=== PATIENT | male | born 1970 | race Caucasian/White ===

== ENCOUNTER 2016-11-19 12:17 | Emergency (ER) | payer OTHER ==
[2016-11-19] VITALS (11 sets, daily range): BP systolic 110–146; BP diastolic 65–78
[~2016-11-19] VITALS: Ht 185.4 cm; Wt 122.9 kg
--- NOTE | 2016-11-19 12:41 | RAD ---
Exam: AP portable chest. History: Chest pain. Comparison: None. Findings: The heart and mediastinal structures are within normal limits for size. Lungs are without infiltrate. No pneumothorax or pleural effusion is appreciated. Impression: 1. No acute cardiopulmonary process.
--- NOTE | 2016-11-19 12:57 | PHYS DOC ---
Adult General Chief Complaint Chief Complaint: ABNORMAL LABS HPI HPI Patient presents to the emergency department from [facility] for evaluation of multiple symptoms including chest pain and dyspnea on exertion headaches and dizziness. All of the symptoms have been going on for 1-2 weeks except for the chest pain started last night. He said it was nonexertional chest pressure with radiation to his back however he denied any nausea vomiting or diaphoresis with it. He says that he gets very short of breath when walking and that he feels dizzy primarily when he was standing up or exerting himself. He denies any prior cardiac history and no prior cardiac risk stratification. Patient says that he does have a history of anemia which was treated with iron supplementation in the past but he has never required a blood transfusion. Review of Systems Review of Systems Constitutional: Denies fever or chills [] Eyes: Denies change in visual acuity, redness, or eye pain [] HENT: Denies nasal congestion or sore throat [] Respiratory: Denies cough. + shortness of breath [] Cardiovascular: +CP GI: Denies abdominal pain, nausea, vomiting, bloody stools or diarrhea [] : Denies dysuria or hematuria [] Musculoskeletal: Denies back pain or joint pain [] Integument: Denies rash or skin lesions [] Neurologic: + headache and dizziness Physical Exam Physical Exam Constitutional: Well developed, well nourished, no acute distress, non-toxic appearance. [] HENT: Normocephalic, atraumatic, bilateral external ears normal, oropharynx moist, no oral exudates, nose normal. [] Eyes: PERRLA, EOMI, conjunctiva pale, no discharge. [] Neck: Normal range of motion, no tenderness, supple, no stridor. [] Cardiovascular:Heart rate regular rhythm, no murmur [] Lungs & Thorax: Bilateral breath sounds clear to auscultation [] Abdomen: Bowel sounds normal, soft, no tenderness, no masses, no pulsatile masses. [] Skin: Warm, dry, no erythema, no rash. [] Back: No tenderness, no CVA tenderness. [] Extremities: No tenderness, no cyanosis, no clubbing, ROM intact, no edema. [] Neurologic: Alert and oriented X 3, normal motor function, normal sensory function, no focal deficits noted. [] EKG EKG [] Radiology/Procedures Radiology/Procedures Exam: AP portable chest. History: Chest pain. Comparison: None. Findings: The heart and mediastinal structures are within normal limits for size. Lungs are without infiltrate. No pneumothorax or pleural effusion is appreciated. Impression: 1. No acute cardiopulmonary process. DICTATED AND SIGNED BY: ANDERS CHRISTIAN MD DATE: 11/19/16 1239 Course & Med Decision Making Course & Med Decision Making Patient has symptomatic anemia that appears to be microcytic. Any black or bloody stools to dc and no history of blood loss. Patient will be admitted given how profound his anemia is in that he is quite symptomatic from it. Patient will be admitted to [facility] for now and will be transfused 2 units of packed red blood cells. Patient accepted by Dr. Hernandez. Patient was admitted in stable condition with normal vital signs. Dragon Disclaimer Dragon Disclaimer This chart was dictated in whole or in part using Voice Recognition software in a busy, high-work load, and often noisy Emergency Department environment. It may contain unintended and wholly unrecognized errors or omissions. Departure Departure: Impression: Primary Impression: Symptomatic anemia Additional Impressions: Chest pain VALDEZ (dyspnea on exertion) Dizziness Disposition: ADMITTED INPATIENT Admitting Physician: Shanti Hernandez Condition: STABLE Problem Qualifiers JENNIFER MARTÍNEZ DO Nov 19, 2016 12:57
--- NOTE | 2016-11-19 13:02 | EKG ---
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
[2016-11-19 13:10] LABS: BASO # 0.1 x10^3/uL (0.0-0.2); BASO % 1 % (0-3); EOS % 1 % (0-3); HEMATOCRIT 20.9 % (39.0-53.0); LYMPH % 22 % (24-48); MEAN CORPUSCULAR HEMOGLOBIN 18 pg (25-35); MEAN CORPUSCULAR HGB CONC 28 g/dL (31-37); MEAN CORPUSCULAR VOLUME 66 fL (79-100); MONO # 0.5 x10^3/uL (0.0-1.1); MONO % 12 % (0-9); NEUT # 2.9 x10^3uL (1.8-7.7); NEUT % 64 % (31-73); PLATELET COUNT 148 x10^3/uL (140-400); RED BLOOD COUNT 3.19 x10^6/uL (4.30-5.70); RED CELL DISTRIBUTION WIDTH 19.3 % (11.5-14.5); WHITE BLOOD COUNT 4.6 x10^3/uL (4.0-11.0)
[2016-11-19 13:17] LABS: HEMOGLOBIN 5.8 g/dL (13.0-17.5)
[2016-11-19 13:28] LABS: ALBUMIN 3.8 g/dL (3.4-5.0); ALBUMIN/GLOBULIN RATIO 1.1 (1.0-1.7); CALCIUM 8.7 mg/dL (8.5-10.1); CREATININE 1.1 mg/dL (0.7-1.3); GFR 72.4; MAGNESIUM 2.3 mg/dL (1.8-2.4); POTASSIUM 4.1 mmol/L (3.5-5.1); TOTAL PROTEIN 7.3 g/dL (6.4-8.2)
[2016-11-19] MEDS ORDERED: DIPHENHYDRAMINE 50 MG/ML VIAL IV PRN (13:45)
[2016-11-19] MEDS ORDERED: ONDANSETRON PF 4 MG/2 ML VIAL. IV PRN (13:45)
[2016-11-19] MEDS ORDERED: FENTANYL PF 100 MCG/2 ML VIAL. IV PRN (13:45)
[2016-11-19 13:49] LABS: ANISOCYTOSIS MOD; HYPOCHROMIA MARKED; MICROCYTOSIS MARKED; OVALOCYTES FEW; PLT ESTIMATE ADEQUATE (ADEQUATE); POLYCHROMASIA MOD; TEAR DROP CELLS OCC
[2016-11-19] MEDS ORDERED: IV NORMAL SALINE 250ML 250 ML ONE (15:55)
--- NOTE | 2016-11-19 18:39 | HP ---
ADMIT DATE: 11/19/2016 HISTORY OF PRESENT ILLNESS: The patient is a 45-year-old male patient, a resident at the [facility] who was brought to the Emergency Room with a complaint of shortness of breath, being dizzy, have headache, chest pain that has been going on for a month now. He stated he gets very short of breath when walking and he feels dizzy primarily when he was standing up or exerting himself. He denies any previous cardiac history. Denied any medical problem except obviously IV drug abuse including cocaine, heroin and methamphetamine. He said that about a year ago he was told that he has anemia of Mediterranean variety, but has never had any further investigation and was not treated and when he was evaluated in the Emergency Room, he was found to be extremely anemic with hemoglobin of 5.8, hematocrit 20.9 with an MCV of only 66; however, his white cell count and platelets were normal and he was admitted for blood transfusion and for further evaluation and treatment. PAST MEDICAL HISTORY: Significant for longstanding IV drug abuse for almost 30 years. He has been injecting cocaine, heroin and mainly methamphetamine. PAST SURGICAL HISTORY: Significant for appendectomy. ALLERGIES: He has no known drug allergies. MEDICATIONS: He is currently on no medication. FAMILY HISTORY: He has 3 older sisters and 2 younger sisters; however, he is not aware of any medical problems. His father is still alive, but does not keep in touch with him and mother at age of 62 because of pancreatic cancer. SOCIAL HISTORY: He is , has 2 sons and 1 girl. He has been a smoker and smoked more than 30 years. He does not drink alcohol; however, he has been injecting cocaine, heroin and methamphetamine for more than 30 years. REVIEW OF SYSTEMS: The patient denied any blurring of vision, cataract, glaucoma or macular degeneration. Denied any earache, tinnitus or sensorineural deafness. Denied any nosebleeds, stuffy nose or postnasal drip. Denied any sore throat, sore tongue, toothache, hoarseness of voice or difficulty swallowing. Denied any nausea, vomiting, diarrhea or constipation. Denied any hematemesis, melena or hematochezia. Denied any dysuria, frequency or hematuria. He did complain of chest pain and shortness of breath. Denied any cough, phlegm or hemoptysis. He denied requiring any blood transfusion. Denied any history of acquiring hepatitis B or C. PHYSICAL EXAMINATION: GENERAL: On arrival to the Emergency Room, he was extremely pale, but no jaundice, cyanosis or thyromegaly. No jugular venous distention. No limb edema. VITAL SIGNS: His heart rate was 63, blood pressure 133/76, temperature was 98.3, respiratory rate 20 and oxygen saturation was 99%. HEAD, EYES, EARS, NOSE AND THROAT: Showed normocephalic, atraumatic. NECK: Supple. HEART: Showed normal first and second heart sounds with no gallop, rub or murmur. CHEST: Clear to auscultation. No crepitation or rhonchi. ABDOMEN: Distended, soft, nontender. No guarding or rigidity. No organomegaly. All hernial orifices intact. Bowel sounds normal. NEUROLOGIC: He is awake, alert, responding appropriately. Cranial are nerves intact. EXTREMITIES: He moves extremities without difficulty, ambulates without assistance or assistive devices. SKIN: Showed that he has multiple tattoos all over his body. LABORATORY DATA: Showed a white cell count of 4600, hemoglobin 5.8, hematocrit 21, MCV 66 and platelet count of 148,000. His prothrombin time was 10.6, INR 1, aPTT was 22. His chemistry showed a serum sodium 140, potassium 4.1, chloride 107, bicarbonate 25, anion gap of 8, BUN 12, creatinine 1.1, estimated GFR was 72 mL per minute. His glucose was 101, calcium was 8.7, magnesium 2.3. Total bilirubin, AST, ALT, alkaline phosphatase were normal. His BNP was 96, total protein was 7.3, albumin was 3.8 and lipase was 94. His chest x-ray showed the heart and mediastinum structures are within normal limits for size. Lungs are without infiltrate, no pneumothorax or pleural effusion is appreciated. ASSESSMENT AND PLAN: In summary, this is a 45-year-old male patient with severe microcytic, hypochromic anemia, most likely obviously iron deficiency, although he has no obvious history of hematemesis, melena or hematochezia. He is not using any nonsteroidal anti-inflammatory medication. Racially, he does not seem to be from the Mediterranean race, although obviously that does not exclude that possibility completely. My plan is to arrange for him to check his serum iron, total iron binding capacity, serum ferritin. We will check his stool for occult blood. We will be transfusing 1 unit of blood and we will decide on further management accordingly. SUZY SIMMONS MD DR: EWA/sabra JOB#: [id number] / [id number]
[2016-11-20 02:10] LABS: FECAL OB PT NEGATIVE (NEG)
[2016-11-20 04:42] VITALS: BP 109/61
[2016-11-20 06:52] LABS: CALCIUM 8.5 mg/dL (8.5-10.1); GFR 80.8
[2016-11-20 06:53] LABS: POTASSIUM 4.4 mmol/L (3.5-5.1)
[2016-11-20 07:02] LABS: HEMATOCRIT 25.4 % (39.0-53.0); HEMOGLOBIN 7.3 g/dL (13.0-17.5); LYMPH % 26 % (24-48); MEAN CORPUSCULAR HEMOGLOBIN 20 pg (25-35); MEAN CORPUSCULAR HGB CONC 29 g/dL (31-37); MEAN CORPUSCULAR VOLUME 69 fL (79-100); MONO % 12 % (0-9); NEUT % 60 % (31-73); PLATELET COUNT 152 x10^3/uL (140-400); RED BLOOD COUNT 3.68 x10^6/uL (4.30-5.70); RED CELL DISTRIBUTION WIDTH 21.9 % (11.5-14.5); WHITE BLOOD COUNT 4.3 x10^3/uL (4.0-11.0)
[2016-11-20 07:03] LABS: BASO % 1 % (0-3); EOS # 0.1 x10^3/uL (0.0-0.7); EOS % 1 % (0-3); LYMPH # 1.1 x10^3/uL (1.0-4.8); MONO # 0.5 x10^3/uL (0.0-1.1); NEUT # 2.5 x10^3uL (1.8-7.7)
[2016-11-20 12:15] VITALS: BP 123/81
[2016-11-20] MEDS ORDERED: ACETAMINOPHEN 325 MG TABLET PO PRN (15:15)
[2016-11-20] MEDS: ACETAMINOPHEN 325 MG TABLET PO PRN ×2 (15:49→21:00)
[2016-11-20] MEDS ORDERED: IRON SUCROSE COMPLEX 500 MG in IV NORMAL SALINE 250ML 250 ML IV ONE (16:00)
[2016-11-20 16:01] VITALS: BP 111/68
[2016-11-20 19:52] VITALS: BP 106/61
[2016-11-20] MEDS: FERROUS SULFATE 325 MG TABLET PO SCH (21:00)
[2016-11-20] MEDS: ASCORBIC ACID 500 MG TABLET PO SCH (21:00)
[2016-11-21] MEDS ORDERED: ONDANSETRON PF 4 MG/2 ML VIAL. IV PRN (00:45)
[2016-11-21 00:50] VITALS: BP 144/84
[2016-11-21] MEDS ORDERED: ONDANSETRON PF 4 MG/2 ML VIAL. ONE (00:52)
[2016-11-21 06:06] VITALS: BP 115/75
[2016-11-21 06:39] LABS: HEMATOCRIT 26.9 % (39.0-53.0); HEMOGLOBIN 7.6 g/dL (13.0-17.5); RED BLOOD COUNT 3.9 x10^6/uL (4.30-5.70); WHITE BLOOD COUNT 4.7 x10^3/uL (4.0-11.0)
[2016-11-21] MEDS: ASCORBIC ACID 500 MG TABLET PO SCH (08:17)
[2016-11-21] MEDS: FERROUS SULFATE 325 MG TABLET PO SCH (08:17)
[2016-11-21] MEDS ORDERED: IRON SUCROSE COMPLEX 500 MG in IV NORMAL SALINE 250ML 250 ML IV ONE (09:00)
[2016-11-21] MEDS ORDERED: FERR-26 PO (14:03)
[2016-11-21] MEDS ORDERED: ASCO500T3 PO (14:03)
[2016-11-21 14:23] VITALS: BP 127/82
[2016-11-22 15:07] LABS: HCV ANTIBODY >11.0 s/co ratio (0.0-0.9); HEP A IGM ABDY Negative (Negative)
== END 2016-11-21 14:59 | disposition home or self-care (01) ==
LOC: ER 12:17 → 1 SOUTH 13:41 → EEVIPCON 13:41
PROVIDERS: ADMIT Internal Medicine; ATTEND Internal Medicine
DX: D50.9 Iron deficiency anemia, unspecified (principal); F17.200 Nicotine dependence, unspecified, uncomplicated; R07.89 Other chest pain; R06.02 Shortness of breath; R51 Headache; R42 Dizziness and giddiness
CPT/HCPCS: 36415; 36430; 71010; 80048; 80053; 80074; 82274; 82550; 82728; 83540; 83550; 83690; 83735; 83880; 84443; 84484; 85008; 85027; 85610; 85730; 86850; 86900; 86901; 86920; 87641; 93005; 96365; 96366; 96375; 99285; G0378; J1756; J2405; J7050; P9016; G0379

== ENCOUNTER → 2016-11-25 | Outpatient (CLI) | payer OTHER ==
[2016-11-21 14:23] VITALS: BP 127/82
[~2016-11-25] MED LIST: ASCO500T3 PO; FERR-26 PO
[2016-11-25 14:47] LABS: BASO # 0.1 x10^3/uL (0.0-0.2); BASO % 1 % (0-3); EOS # 0.1 x10^3/uL (0.0-0.7); EOS % 1 % (0-3); HEMATOCRIT 30.8 % (39.0-53.0); HEMOGLOBIN 9.1 g/dL (13.0-17.5); LYMPH # 1.4 x10^3/uL (1.0-4.8); LYMPH % 20 % (24-48); MEAN CORPUSCULAR HEMOGLOBIN 22 pg (25-35); MEAN CORPUSCULAR HGB CONC 29 g/dL (31-37); MEAN CORPUSCULAR VOLUME 74 fL (79-100); MONO # 0.5 x10^3/uL (0.0-1.1); MONO % 8 % (0-9); NEUT # 4.8 x10^3uL (1.8-7.7); NEUT % 70 % (31-73); PLATELET COUNT 134 x10^3/uL (140-400); RED BLOOD COUNT 4.15 x10^6/uL (4.30-5.70); RED CELL DISTRIBUTION WIDTH 25.7 % (11.5-14.5); WHITE BLOOD COUNT 6.8 x10^3/uL (4.0-11.0)
[2016-11-25 16:07] LABS: % BANDS 1 % (0-9); % BASOS 0 % (0-3); % EOS 0 % (0-5); % LYMPHS 24 % (24-48); % MONOS 5 % (0-10); % SEGS 71 % (35-66); ANISOCYTOSIS MARKED; HYPOCHROMIA MOD; PLT ESTIMATE DECREASED (ADEQUATE); POLYCHROMASIA SLIGHT
[2016-11-25 16:08] LABS: MICROCYTOSIS MOD; OVALOCYTES PRESENT; TEAR DROP CELLS PRESENT
== END | disposition home or self-care (01) ==
LOC: SPEC 14:21
PROVIDERS: ATTEND Nurse Practitioner
DX: Z00.00 Encounter for general adult medical examination without abnormal findings (principal)
CPT/HCPCS: 36415; 85007; 85027